=== PATIENT | female | born 1970 | race Caucasian/White ===

== ENCOUNTER 2018-11-16 09:42 | Inpatient (IN) | payer BC ==
[2018-11-16] MEDS: THROMBIN (BOVINE) 5,000 UNIT VIAL TP (11:32)
[2018-11-16] MEDS: POLYMYXIN/BACITRACIN 1L IRRIG (11:32)
[2018-11-16] MEDS: LIDOCAINE 1%/EPI (1:100,000) (MDV) 20 ML (11:32)
[2018-11-16] MEDS: GELATIN SIZE 100 SPONGE (11:32)
[2018-11-16] MEDS ORDERED: CEFAZOLIN 1 GM INJ (11:56)
[2018-11-16] MEDS ORDERED: ROCURONIUM 50 MG INJ (11:56)
[2018-11-16] MEDS ORDERED: GLYCOPYRROLATE 0.4 MG INJ (11:56)
[2018-11-16] MEDS ORDERED: NEOSTIGMINE 3 MG/3 ML SYRINGE (11:56)
[2018-11-16] MEDS ORDERED: PROPOFOL 20 ML (11:56)
[2018-11-16] MEDS ORDERED: MIDAZOLAM 1 MG/ML 2 ML INJ (11:57)
[2018-11-16] MEDS ORDERED: ONDANSETRON 4 MG INJ (11:57)
[2018-11-16] MEDS ORDERED: DEXAMETHASONE 4 MG/ML 5 ML INJ (11:57)
[2018-11-16] MEDS ORDERED: DIPHENHYDRAMINE 50 MG INJ IV (12:00)
[2018-11-16] MEDS ORDERED: OXYCODONE/ACETAMINOPHEN (5/325) TAB PO ×2 (12:00)
[2018-11-16] MEDS ORDERED: LABETALOL HCL 20MG INJ IV (12:00)
[2018-11-16] MEDS ORDERED: IPRATROPIUM (NEB) 0.5 MG/2.5 ML AMP HHN (12:00)
[2018-11-16] MEDS ORDERED: HYDROmorphONE 1 MG/5 ML IV SYRINGE IV ×3 (12:00)
[2018-11-16] MEDS ORDERED: FENTAnyl 50 MCG/ML VIAL IV ×2 (12:00)
[2018-11-16] MEDS ORDERED: hydrALAzine 20 MG INJ IV (12:00)
[2018-11-16] MEDS ORDERED: TRIMETHOBENZAMIDE 100 MG/ML VIAL IM (12:00)
[2018-11-16] MEDS ORDERED: EPHEDrine SULFATE 50 MG/5 ML SYG IV (12:00)
[2018-11-16] MEDS ORDERED: ALBUTEROL 0.083% (NEB) 2.5 MG/3 ML AMP HHN (12:00)
[2018-11-16] MEDS ORDERED: SUGAMMADEX SODIUM 200 MG/2 ML VIAL IV (13:54)
[2018-11-16] MEDS: ONDANSETRON 4 MG INJ IV (14:27)
[2018-11-16] MEDS: MEPERIDINE 25 MG INJ IV (14:27)
[2018-11-16] MEDS: FENTAnyl 50 MCG/ML VIAL IV ×2 (14:28→15:01)
[2018-11-16] MEDS: DEXTROSE 5%-LR 1,000 ML IV (14:30)
[2018-11-16] MEDS ORDERED: ONDANSETRON 4 MG INJ IV (14:30)
[2018-11-16] MEDS: morphine 2 MG INJ IV (14:31)
[2018-11-16] MEDS: MIDAZOLAM 1 MG/ML 2 ML INJ IV (14:33)
[2018-11-16] MEDS: HYDROmorphONE 2 MG/ML SYG IV (17:49)
[2018-11-16] MEDS: QUETIAPINE 100 MG TAB PO (20:38)
[2018-11-16] MEDS: BACLOFEN 10 MG TAB PO (20:38)
[2018-11-16] MEDS: GABAPENTIN 300 MG CAP PO (20:38)
[2018-11-17] MEDS: CEFAZOLIN 1 GM/50 ML (PMX) 50 ML IVPB ×4 (00:07→21:53)
[2018-11-17] MEDS: DEXTROSE 5%-LR 1,000 ML IV ×3 (01:00→17:45)
[2018-11-17] MEDS: HYDROmorphONE 2 MG/ML SYG IV ×4 (04:51→21:54)
[2018-11-17 05:04] LABS: ADD MAN DIFF? NO
[2018-11-17 05:10] LABS: WHITE BLOOD COUNT 9.4 10^3/ul (4.8-10.8)
[2018-11-17 05:10] LABS: BASOPHILS % 0.2 % (0.0-2.0); EOSINOPHILS # 0.1 10^3/ul (0.0-0.5); EOSINOPHILS % 0.5 % (0.0-7.0); HEMATOCRIT 36.6 % (37.0-47.0); HEMOGLOBIN 12.6 g/dl (12.0-16.0); LYMPHOCYTES # 2.5 10^3/ul (0.8-2.9); LYMPHOCYTES % 26.5 % (15.0-51.0); MEAN CORPUSCULAR HEMOGLOBIN 32.7 pg (29.0-33.0); MEAN CORPUSCULAR HGB CONC 34.4 g/dl (32.0-37.0); MEAN CORPUSCULAR VOLUME 95.1 fl (82.0-101.0); MONOCYTE # 0.6 10^3/ul (0.3-0.9); NEUTROPHIL # 6.3 10^3/ul (1.6-7.5); NEUTROPHILS % 66.4 % (39.0-77.0); PLATELET COUNT 205 10^3/UL (140-415); RED BLOOD COUNT 3.85 10^6/ul (4.20-5.40); RED CELL DISTRIBUTION WIDTH 11.4 % (11.5-14.5)
[2018-11-17 05:37] LABS: ANION GAP 2 (5-13); BLOOD UREA NITROGEN 8 mg/dl (7-20); CALCIUM 9.3 mg/dl (8.4-10.2); CARBON DIOXIDE 31 mmol/L (21-31); CHLORIDE 108 mmol/L (97-110); CREATININE 0.53 mg/dl (0.44-1.00); Estimated GFR > 60 mL/min (>60); GLUCOSE 120 mg/dl (70-220); POTASSIUM 3.9 mmol/L (3.5-5.1); SODIUM 141 mmol/L (135-144)
[2018-11-17] MEDS: PANTOPRAZOLE (EC) 40 MG TAB PO (05:45)
[2018-11-17] MEDS: BACLOFEN 10 MG TAB PO ×2 (08:05→21:53)
[2018-11-17] MEDS: DOCUSATE SODIUM 100 MG CAP PO (08:05)
[2018-11-17] MEDS: RANITIDINE 150 MG TAB PO (08:06)
[2018-11-17] MEDS: GABAPENTIN 300 MG CAP PO ×2 (08:06→21:53)
[2018-11-17] MEDS: OXCARBAZEPINE 300 MG TAB PO (08:06)
[2018-11-17] MEDS: NICOTINE (14 MG/24 HR) PATCH TRANSDERM (10:15)
[2018-11-17] MEDS: HYDROCODONE/APAP (7.5/325) TAB PO (10:16)
[2018-11-17] MEDS: CALCIUM CARBONATE 500 MG CHEW TAB PO (16:58)
[2018-11-17] MEDS: QUETIAPINE 100 MG TAB PO (21:53)
[2018-11-18] MEDS: CEFAZOLIN 1 GM/50 ML (PMX) 50 ML IVPB ×3 (05:15→21:35)
[2018-11-18] MEDS: DEXTROSE 5%-LR 1,000 ML IV ×3 (05:15→21:35)
[2018-11-18] MEDS: PANTOPRAZOLE (EC) 40 MG TAB PO (05:16)
[2018-11-18] MEDS: HYDROmorphONE 2 MG/ML SYG IV ×2 (05:18→21:01)
[2018-11-18] MEDS: BACLOFEN 10 MG TAB PO ×2 (09:01→21:02)
[2018-11-18] MEDS: GABAPENTIN 300 MG CAP PO ×2 (09:01→21:02)
[2018-11-18] MEDS: RANITIDINE 150 MG TAB PO (09:01)
[2018-11-18] MEDS: DOCUSATE SODIUM 100 MG CAP PO (09:01)
[2018-11-18] MEDS: OXCARBAZEPINE 300 MG TAB PO (09:02)
[2018-11-18] MEDS: HYDROCODONE/APAP (7.5/325) TAB PO ×4 (09:02→23:27)
[2018-11-18] MEDS: NICOTINE (14 MG/24 HR) PATCH TRANSDERM (09:02)
[2018-11-18] MEDS: QUETIAPINE 100 MG TAB PO (21:02)
[2018-11-19] MEDS: HYDROmorphONE 2 MG/ML SYG IV ×4 (01:58→20:45)
[2018-11-19] MEDS: HYDROCODONE/APAP (7.5/325) TAB PO ×2 (04:58→14:30)
[2018-11-19] MEDS: PANTOPRAZOLE (EC) 40 MG TAB PO (04:58)
[2018-11-19] MEDS: RANITIDINE 150 MG TAB PO (09:21)
[2018-11-19] MEDS: OXCARBAZEPINE 300 MG TAB PO (09:22)
[2018-11-19] MEDS: GABAPENTIN 300 MG CAP PO ×2 (09:22→20:45)
[2018-11-19] MEDS: DOCUSATE SODIUM 100 MG CAP PO (09:22)
[2018-11-19] MEDS: BACLOFEN 10 MG TAB PO ×2 (09:22→20:45)
[2018-11-19] MEDS: NICOTINE (14 MG/24 HR) PATCH TRANSDERM (09:23)
[2018-11-19] MEDS: DEXTROSE 5%-LR 1,000 ML IV (10:04)
[2018-11-19] MEDS: HYDROCODONE/APAP (5/325) TAB PO ×2 (11:26→18:51)
[2018-11-19] MEDS: QUETIAPINE 25 MG TAB PO (14:33)
[2018-11-19] MEDS: QUETIAPINE 100 MG TAB PO (20:45)
[2018-11-20] MEDS: CALCIUM CARBONATE 500 MG CHEW TAB PO ×2 (00:05→18:38)
[2018-11-20] MEDS: HYDROmorphONE 2 MG/ML SYG IV ×4 (01:29→20:07)
[2018-11-20] MEDS: PANTOPRAZOLE (EC) 40 MG TAB PO (05:46)
[2018-11-20] MEDS: HYDROCODONE/APAP (7.5/325) TAB PO ×5 (05:47→22:37)
[2018-11-20] MEDS: RANITIDINE 150 MG TAB PO (08:39)
[2018-11-20] MEDS: BACLOFEN 10 MG TAB PO ×2 (08:40→20:07)
[2018-11-20] MEDS: GABAPENTIN 300 MG CAP PO ×2 (08:40→20:07)
[2018-11-20] MEDS: OXCARBAZEPINE 300 MG TAB PO (08:42)
[2018-11-20] MEDS: NICOTINE (14 MG/24 HR) PATCH TRANSDERM (09:00)
[2018-11-20] MEDS: DOCUSATE SODIUM 100 MG CAP PO (09:01)
[2018-11-20] MEDS: QUETIAPINE 25 MG TAB PO (17:23)
[2018-11-20] MEDS: NICOTINE (21 MG/24 HR) PATCH TRANSDERM (17:23)
[2018-11-20] MEDS: QUETIAPINE 100 MG TAB PO (20:07)
[2018-11-21] MEDS: HYDROmorphONE 2 MG/ML SYG IV ×3 (00:10→11:28)
[2018-11-21] MEDS: HYDROCODONE/APAP (7.5/325) TAB PO ×3 (04:31→13:10)
[2018-11-21] MEDS: PANTOPRAZOLE (EC) 40 MG TAB PO (05:57)
[2018-11-21] MEDS: CALCIUM CARBONATE 500 MG CHEW TAB PO (07:52)
[2018-11-21] MEDS: RANITIDINE 150 MG TAB PO (08:48)
[2018-11-21] MEDS: OXCARBAZEPINE 300 MG TAB PO (08:48)
[2018-11-21] MEDS: DOCUSATE SODIUM 100 MG CAP PO (08:49)
[2018-11-21] MEDS: BACLOFEN 10 MG TAB PO (08:49)
[2018-11-21] MEDS: NICOTINE (21 MG/24 HR) PATCH TRANSDERM (08:50)
[2018-11-21] MEDS ORDERED: GABAPENTIN 300 MG CAP PO (09:00)
[2018-11-21] MEDS: GABAPENTIN 300 MG CAP PO ×2 (09:02→21:52)
[2018-11-21] MEDS: HYDROCODONE/APAP (10/325) TAB PO ×2 (16:40→21:53)
[2018-11-21] MEDS: QUETIAPINE 100 MG TAB PO (21:52)
[2018-11-22] MEDS: HYDROCODONE/APAP (10/325) TAB PO ×5 (04:56→21:30)
[2018-11-22 05:05] LABS: ADD MAN DIFF? NO
[2018-11-22 05:14] LABS: BASOPHIL # 0.1 10^3/ul (0.0-0.1); EOSINOPHILS # 0.3 10^3/ul (0.0-0.5); EOSINOPHILS % 5.5 % (0.0-7.0); HEMATOCRIT 41.8 % (37.0-47.0); HEMOGLOBIN 14.8 g/dl (12.0-16.0); LYMPHOCYTES # 2.1 10^3/ul (0.8-2.9); MEAN CORPUSCULAR HEMOGLOBIN 32.8 pg (29.0-33.0); MEAN CORPUSCULAR HGB CONC 35.4 g/dl (32.0-37.0); MEAN CORPUSCULAR VOLUME 92.7 fl (82.0-101.0); MEAN PLATELET VOLUME 10.8 fl (7.4-10.4); MONOCYTE # 0.5 10^3/ul (0.3-0.9); MONOCYTES % 8.4 % (0.0-11.0); NEUTROPHIL # 2.9 10^3/ul (1.6-7.5); NEUTROPHILS % 49.8 % (39.0-77.0); PLATELET COUNT 234 10^3/UL (140-415); RED BLOOD COUNT 4.51 10^6/ul (4.20-5.40); RED CELL DISTRIBUTION WIDTH 11.1 % (11.5-14.5)
[2018-11-22 05:14] LABS: WHITE BLOOD COUNT 5.9 10^3/ul (4.8-10.8)
[2018-11-22 05:35] LABS: ANION GAP 10 (5-13); BLOOD UREA NITROGEN 15 mg/dl (7-20); CALCIUM 10.2 mg/dl (8.4-10.2); CARBON DIOXIDE 29 mmol/L (21-31); CHLORIDE 92 mmol/L (97-110); Estimated GFR > 60 mL/min (>60); GLUCOSE 100 mg/dl (70-220); POTASSIUM 5.8 mmol/L (3.5-5.1); SODIUM 131 mmol/L (135-144)
[2018-11-22] MEDS: DOCUSATE SODIUM 100 MG CAP PO (08:06)
[2018-11-22] MEDS: RANITIDINE 150 MG TAB PO (08:06)
[2018-11-22] MEDS: NICOTINE (21 MG/24 HR) PATCH TRANSDERM ×2 (08:07→19:02)
[2018-11-22] MEDS: OXCARBAZEPINE 300 MG TAB PO (08:07)
[2018-11-22] MEDS: GABAPENTIN 300 MG CAP PO ×2 (08:07→20:52)
[2018-11-22] MEDS: HYDROCORTISONE 1% 28 GM CR TOP ×2 (11:10→20:52)
[2018-11-22] MEDS: BISACODYL (EC) 5 MG TAB PO (15:16)
[2018-11-22] MEDS: QUETIAPINE 100 MG TAB PO (21:30)
[2018-11-23 05:22] LABS: ADD MAN DIFF? NO
[2018-11-23 05:31] LABS: WHITE BLOOD COUNT 4.7 10^3/ul (4.8-10.8)
[2018-11-23 05:31] LABS: BASOPHIL # 0.1 10^3/ul (0.0-0.1); BASOPHILS % 1.3 % (0.0-2.0); EOSINOPHILS # 0.3 10^3/ul (0.0-0.5); EOSINOPHILS % 5.5 % (0.0-7.0); HEMATOCRIT 37.1 % (37.0-47.0); HEMOGLOBIN 13.4 g/dl (12.0-16.0); LYMPHOCYTES # 1.6 10^3/ul (0.8-2.9); LYMPHOCYTES % 34.6 % (15.0-51.0); MEAN CORPUSCULAR HEMOGLOBIN 33.1 pg (29.0-33.0); MEAN CORPUSCULAR HGB CONC 36.1 g/dl (32.0-37.0); MEAN CORPUSCULAR VOLUME 91.6 fl (82.0-101.0); MEAN PLATELET VOLUME 9.6 fl (7.4-10.4); MONOCYTE # 0.5 10^3/ul (0.3-0.9); MONOCYTES % 11.5 % (0.0-11.0); NEUTROPHIL # 2.2 10^3/ul (1.6-7.5); NEUTROPHILS % 46.5 % (39.0-77.0); PLATELET COUNT 268 10^3/UL (140-415); RED BLOOD COUNT 4.05 10^6/ul (4.20-5.40); RED CELL DISTRIBUTION WIDTH 11.2 % (11.5-14.5)
[2018-11-23 06:05] LABS: ANION GAP 8 (5-13); BLOOD UREA NITROGEN 18 mg/dl (7-20); CALCIUM 9.5 mg/dl (8.4-10.2); CARBON DIOXIDE 26 mmol/L (21-31); CHLORIDE 96 mmol/L (97-110); CREATININE 0.49 mg/dl (0.44-1.00); Estimated GFR > 60 mL/min (>60); GLUCOSE 100 mg/dl (70-220); POTASSIUM 4.7 mmol/L (3.5-5.1); SODIUM 130 mmol/L (135-144)
[2018-11-23] MEDS: HYDROCODONE/APAP (10/325) TAB PO ×3 (06:14→18:20)
[2018-11-23] MEDS: GABAPENTIN 300 MG CAP PO ×2 (10:11→20:23)
[2018-11-23] MEDS: RANITIDINE 150 MG TAB PO (10:11)
[2018-11-23] MEDS: DOCUSATE SODIUM 100 MG CAP PO (10:11)
[2018-11-23] MEDS: NICOTINE (21 MG/24 HR) PATCH TRANSDERM (10:12)
[2018-11-23] MEDS: OXCARBAZEPINE 300 MG TAB PO (10:12)
[2018-11-23] MEDS: morphine 2 MG INJ IV ×3 (10:18→22:41)
[2018-11-23] MEDS: HYDROCORTISONE 1% 28 GM CR TOP ×2 (13:31→20:24)
[2018-11-23] MEDS: CYCLOBENZAPRINE 10 MG TAB PO (20:23)
[2018-11-23] MEDS: QUETIAPINE 100 MG TAB PO (20:23)
[2018-11-24] MEDS: HYDROCODONE/APAP (7.5/325) TAB PO (02:23)
[2018-11-24] MEDS: HYDROCODONE/APAP (10/325) TAB PO ×3 (06:23→14:37)
[2018-11-24] MEDS: OXCARBAZEPINE 300 MG TAB PO (08:57)
[2018-11-24] MEDS: GABAPENTIN 300 MG CAP PO (08:58)
[2018-11-24] MEDS: RANITIDINE 150 MG TAB PO (08:59)
[2018-11-24] MEDS: DOCUSATE SODIUM 100 MG CAP PO (08:59)
[2018-11-24] MEDS: NICOTINE (21 MG/24 HR) PATCH TRANSDERM (09:00)
[2018-11-24] MEDS: CYCLOBENZAPRINE 10 MG TAB PO (09:02)
[2018-11-24] MEDS: HYDROCORTISONE 1% 28 GM CR TOP (09:02)
== END 2018-11-24 17:45 | disposition home or self-care (01) | DRG 460 ==
LOC: REC 09:42 → MS1 15:35
PROC: 0SG00J1 Fusion of Lumbar Vertebral Joint with Synthetic Substitute, Posterior Approach, Posterior Column, Open Approach (ICD-10-PCS; principal; 2018-11-16 12:00)
PROC: 0MBD0ZZ Excision of Lower Spine Bursa and Ligament, Open Approach (ICD-10-PCS; 2018-11-16 12:00)
DX: M43.16 Spondylolisthesis, lumbar region (principal); M71.38 Other bursal cyst, other site; J44.9 Chronic obstructive pulmonary disease, unspecified; Z72.0 Tobacco use; F41.9 Anxiety disorder, unspecified; F31.9 Bipolar disorder, unspecified; J45.909 Unspecified asthma, uncomplicated
CPT/HCPCS: 72100; 80048; 85025; 87086; 97116; 97162; 97530